=== PATIENT | female | born 1945 | race Caucasian/White ===

== ENCOUNTER → 2016-06-12 | Outpatient (CLI) | payer OTHER ==
[~2016-06-12] VITALS: Ht 162.6 cm; Wt 62.1 kg
[~2016-06-12] MED LIST: CALCIUM500 M4 PO; ESTRACE42.5 GM VG; ZESTRIL10 MG PO
== END | disposition home or self-care (01) ==
LOC: AMB 07:56
DX: D12.2 Benign neoplasm of ascending colon (principal); D12.3 Benign neoplasm of transverse colon; Q27.33 Arteriovenous malformation of digestive system vessel; K64.8 Other hemorrhoids; K62.89 Other specified diseases of anus and rectum; R73.9 Hyperglycemia, unspecified; E78.5 Hyperlipidemia, unspecified; I10 Essential (primary) hypertension; Z82.49 Family history of ischemic heart disease and other diseases of the circulatory system
CPT/HCPCS: 88305